=== PATIENT | female | born 1965 | race Caucasian/White ===

== ENCOUNTER → 2019-10-30 08:57 | Outpatient (BNVA) | payer BC, SELFPAY | PROVIDERS: Family Provider Family Medicine; Visit Provider Nurse Practitioner Women's Health | DX: N90.89 Other specified noninflammatory disorders of vulva and perineum (principal) | CPT/HCPCS: 88305 ==

== ENCOUNTER 2020-03-22 07:41 | Outpatient (CLI) | payer BC, SELFPAY ==
--- NOTE | 2020-03-22 08:01 | MM_ITS ---
WS: [id number] BILATERAL DIGITAL SCREENING MAMMOGRAPHY WITH CAD CLINICAL INFORMATION: SCREEN HISTORY: Screening mammogram. No current complaints. COMPARISON: TECHNIQUE: Bilateral CC and MLO views. FINDINGS: Scattered fibroglandular densities bilaterally. No suspicious focal mass, asymmetry, calcifications, or architectural distortion. No evidence of malignancy. MM/[id number] IMPRESSION: BI-RADS: 1-Negative FOLLOW UP: 1 Year Follow-up Recommend return to annual screening mammography.
== END 2020-03-22 07:42 | disposition home or self-care (01) ==
LOC: RADSHAW 07:47
PROVIDERS: PCP Family Medicine; Visit Provider Family Medicine
DX: Z12.31 Encounter for screening mammogram for malignant neoplasm of breast (principal)
CPT/HCPCS: 77067

== ENCOUNTER 2021-01-06 07:00 | Observation (INO) | payer OTHER, SELFPAY ==
[2021-01-06] VITALS (13 sets, daily range): BP systolic 119–177; BP diastolic 76–105; PULSE 68–100; RESP 15–20; TEMP 36.2–37.1; O2SAT 93–98; BMI 45.1
--- NOTE | 2021-01-06 07:43 | CT_ITS ---
WS: [id number] CT ABDOMEN AND PELVIS WITH CONTRAST HISTORY: umbilical hernia, abd pain TECHNIQUE: Imaging performed of the abdomen and pelvis with IV contrast. Single phase imaging of the abdomen. Coronal and sagittal reformats are submitted. All CT scans at [facility] use at least one of these dose optimization techniques: automated exposure control; mA and/or kV adjustment per patient size (includes targeted exams where dose is matched to clinical indication); or iterativ e reconstruction. IV CONTRAST: Omnipaque 300; 95 mL IV. Oral contrast: No DLP: 2355.16 mGy.cm COMPARISON: None available. Lower thorax: Very slight dependent changes at the lung bases. Heart is normal size. Small hiatal her livier. Liver/biliary system: Mild diffuse hepatic steatosis. No bile duct dilatation or mass. Gallbladder: Normal. No gallstones or wall thickening. No pericholecystic fluid. Pancreas: Normal size pancreas and pancreatic duct. No adjacent inflammation. Spleen: Normal size spleen. No mass or infarct. Adrenal glands: Normal. Right kidney: Normal. Left kidney: Normal. Aorta: Normal. Lymphadenopathy: None. Free fluid: None. GI tract: Normal appendix. There is mild diffuse fecal retention. Numerous diverticula in the descend ing and sigmoid colon. Mild chronic wall thickening of the sigmoid colon. No evidence for acute diver ticulitis. Abdominal wall: Acute area of fat necrosis and stranding and omental infarction at the umbilicus. Sof t tissue stranding of the omental fat which herniates through an umbilical hernia. The orifice of the hernia is 13 mm. The area of enhancement and acute omental necrosis measures 2.3 x 4.7 cm. Fat necro sis is both within the peritoneal cavity but also external to the peritoneal cavity from herniation. Pelvis: No free fluid or adenopathy within the pelvis. Bones: Unremarkable. CT/CT abdomen pelvis w con* [id number] IMPRESSION: 1. Acute omental ischemic changes at the umbilicus. No herniation and associat ed GI tract. 2. Normal appendix. 3. Diverticulosis without evidence for acute diverticulitis.
--- NOTE | 2021-01-06 07:44 | W.ED.ABDPA2 ---
Documented by User: MAU Arrington 01/06/21 09:14 HPI - Abdominal Pain General: Chief Complaint: Abdominal Pain Stated Complaint: Hernia Complications/abd pain Time Seen by Provider: 01/06/21 07:32 History of Present Illness: HPI narrative: 55-year-old female comes in today with umbilical abdominal discomfort since last night. Patient reported difficulty with pain and difficulty sleeping through the night. Patient noticed a lump in her umbilical area about 1 month ago that resolved on its own. Last night patient then felt the lump again and with some discomfort. There is no sign of redness or inflammation to the abdomen. Patient denies any blood in vomit or stool. Patient denies any fever. Patient has had had a uterine ablation. MD elicited complaint: abdominal pain Pertinent past history: none Onset (ago): hour(s) Pain Consistency: other Location: Other (umbilical) Severity: moderate Quality: aching Radiation: none Migration to: no migration Review of Systems General: Reports: 10 or more systems reviewed and unremarkable except in HPI and below GI: Reports: abdominal pain PFSH ED PFSH: Medical History (Updated 01/06/21 @ 11:13 by Radames Brock DO) No pertinent past medical history Vulvar lesion Surgical History H/O arthroscopic knee surgery both knees have been repaired H/O dilation and curettage (~1987) SAB History of endometrial ablation (~2009) treatment of AUB Family History Grandmother Cancer Maternal grandmother--colon cancer and breast cancer Diabetes Paternal grandmother Mother Cancer, Onset Age: 70 uterine cancer Hypertension Father Diabetes Hypertension Heart disease Grandfather Diabetes Paternal grandfather Denies family history of Hyperlipidemia Family history of thyroid problem Stroke Social History Smoking and tobacco status: never smoked Alcohol intake: never Physical Exam Const: COMMON NORMALS: no acute distress and patient oriented x3 GENERAL APPEARANCE: cooperative HENMT: COMMON NORMALS: normocephalic and Normal external nose present HEAD & SCALP: normal to inspection and normocephalic NOSE: Normal external nose present MOUTH: Normal oral and palatal mucosa present THROAT: posterior oropharynx normal Neck/C-Spine: COMMON NORMALS: full ROM Chest: COMMONS NORMALS: normal inspection of the chest Resp: COMMON NORMALS: normal respiratory effort EFFORT & INSPECTION: Yes able to speak in complete sentences Cardio: COMMON NORMALS: regular rate and regular rhythm RATE: regular rate RHYTHM: regular rhythm GI: COMMON NORMALS: Soft to palpation INSPECTION: Yes normal to inspection AUSCULTATION: Yes normoactive bowel sounds PALPATION: Yes Soft to palpation, Yes Tenderness to palpation present (GI) (Umbilical) and Yes Other GI palpation findings present (Supra umbilical palpable mass that is tender but reduces.) PERCUSSION: normal to percussion : COMMON NORMALS: Yes no CVA tenderness BLADDER/KIDNEY EXAM: Yes no CVA tenderness Back/Pelvis: COMMON NORMALS: no CVA tenderness and thoracic and lumbar spine normal to inspection Extremity: COMMON NORMALS: normal to inspection Neuro: COMMON NORMALS: patient oriented x3 and moves all extremities Psych: COMMON NORMALS: mental status grossly normal and cooperative Skin: COMMON NORMALS: no rashes or lesions noted GENERAL SKIN EXAM: no rashes or lesions noted Course ED course: 905, discussed with Dr. Brock abnormality on the CT scan with the abdomen pelvis, shows entrapped, necrotic omentum and a umbilical hernia. Vital Signs: Vital signs: Vital Signs Temperature 98.7 F 01/06/21 10:02 Pulse Rate 76 01/06/21 10:42 Respiratory Rate 20 H 01/06/21 10:42 Blood Pressure 177/93 01/06/21 10:42 Pulse Oximetry 95 01/06/21 10:42 MDM - Abdominal Pain MDM Narrative: Medical decision making narrative: Patient came in today for concerns of umbilical tenderness and swelling. Patient reported significant pain last night to the point that she was unable to sleep. Patient appears well. Patient appears no acute distress. On exam there is a palpable mass to the umbilical area just superior to it. It is reducible but there is some induration or thickening of the tissue. No significant redness is noted to the surrounding area. Vital signs are normal. Differential diagnosis includes but not limited to incarcerated hernia, entrapped omentum, bowel obstruction. Laboratory values were unremarkable. CT scan abdomen pelvis did note entrapped omentum with necrosis. I reviewed this with Dr. Brock who felt the patient needed to be further evaluated by surgery. Care was then turned over to Dr. Brock for completion of treatment and evaluation. Lab Data: Labs: Lab Results 01/06/21 01/06/21 Range/Units 07:51 07:51 WBC 9.8 (4.0-10.0) 10^3/ uL RBC 4.86 (4.1-5.3) 10^6/u L Hgb 15.1 (11.5-15.3) g/dL Hct 46.4 (37.0-47.0) % MCV 95.5 (81-99) fL MCH 31.1 (28.0-34.0) pg MCHC 32.5 (30.0-36.0) g/dL RDW 13.6 (12.1-15.1) % Plt Count 284 (130-400) 10^3/c mm MPV 9.4 (7.4-10.4) fL Neut % (Auto) 61.2 % Lymph % (Auto) 26.5 % [place] % (Auto) 9.0 % Eos % (Auto) 1.6 % Baso % (Auto) 0.8 % Neut # (Auto) 5.97 (1.8-7.7) 10^3/u L Lymph # (Auto) 2.6 (0.8-4.8) 10^3/u L [place] # (Auto) 0.9 (0.2-0.9) 10^3/u L Eos # (Auto) 0.2 (0.0-0.8) 10^3/u L Baso # (Auto) 0.1 (0.0-0.1) 10^3/u L Nucleated RBC % (a uto) 0 % Nucleated RBCs # 0.0 /100WBC Sodium 136 (136-145) mmol/L Potassium 4.2 (3.5-5.1) mmol/L Chloride 105 (98-107) mmol/L Carbon Dioxide 25 (22-29) mmol/L Anion Gap 10.2 (5-19) BUN 12 (6-20) mg/dL Creatinine 0.8 (0.5-0.9) mg/dL GFR Calculation 74.7 L (90-130) mL/min Glucose 161 H (65-115) mg/dL Calculated Osmolal ity 285 (285-295) mOsm/k g Calcium 8.9 (8.5-10.5) mg/dL Total Bilirubin 0.5 (0.15-1.2) mg/dL AST 14 (0-32) U/L ALT 18 (0-33) U/L Alkaline Phosphata se 83 (35-105) IU/L Total Protein 6.7 (6.6-8.7) g/dL Albumin 3.6 (3.5-5.2) g/dL Globulin 3.1 (1.3-4.6) g/dL Discharge Plan Discharge Patient Disposition: Placed in Observation Clinical Impression: Incarcerated umbilical hernia Condition: Stable Prescriptions: No Action pantoprazole 40 mg tablet,delayed release (DR/EC) 40 mg PO DAILY RF: 0 metformin 750 mg tablet extended release 24 hr 750 mg PO DAILY RF: 0 Referrals: Rocio Diaz MD [Primary Care Provider] - Sign Out Sign Out Data: Patient Sign Out occurred on 01/06/21 at 11:03. Patient's care was discussed, and care was transferred from to Radames Brock DO. Coding Level of Care Code ED Wheel Cutter for Chg Fwd Exam Comprehensive Documented by User: Radames Brock DO 01/06/21 11:13 HPI - Abdominal Pain General: Chief Complaint: Abdominal Pain Stated Complaint: Hernia Complications/abd pain Time Seen by Provider: 01/06/21 07:32 History of Present Illness: HPI narrative: 55-year-old female initially seen by PA. Patient has incarcerate umbilical hernia still having pain. She had the symptoms about a month ago resolved now has recurred. MD elicited complaint: abdominal pain Onset (ago): hour(s) Pain Consistency: constant Location: None Severity: moderate Quality: cramping Radiation: none Migration to: periumbilical Exacerbating factors: movement and other (Palpation) Associated Symptoms: Reports anorexia and GI cramping; Denies belching, bloating, change in bowel habits, change in stool character, chills, coffee ground emesis, constipation, diarrhea, dyspepsia, dysuria, excessive flatus, fever(s), heartburn, hematochezia, hematuria, hematemesis, fecal incontinence, loose stools, melena, nausea, poor appetite, syncope and vomiting Review of Systems Const: Denies: fever(s) or chills ENMT: Denies: throat pain, ear or mastoid pain, nasal discharge or nasal congestion Card: Denies: syncope Resp: Denies: dyspnea, productive cough or non-productive cough GI: Reports: GI cramping; Denies: nausea, vomiting, hematemesis, coffee ground emesis, heartburn, diarrhea, constipation, bloating, belching, excessive flatus, fecal incontinence, change in bowel habits, change in stool character, hematochezia or melena : Denies: dysuria or hematuria Skin/Breast: Denies: rash or pruritus PFSH ED PFSH: Medical History (Updated 01/06/21 @ 11:13 by Radames Brock DO) No pertinent past medical history Vulvar lesion Surgical History H/O arthroscopic knee surgery both knees have been repaired H/O dilation and curettage (~1987) SAB History of endometrial ablation (~2009) treatment of AUB Family History Grandmother Cancer Maternal grandmother--colon cancer and breast cancer Diabetes Paternal grandmother Mother Cancer, Onset Age: 70 uterine cancer Hypertension Father Diabetes Hypertension Heart disease Grandfather Diabetes Paternal grandfather Denies family history of Hyperlipidemia Family history of thyroid problem Stroke Social History Smoking and tobacco status: never smoked Alcohol intake: never Physical Exam Const: COMMON NORMALS: no acute distress GENERAL APPEARANCE: cooperative and comfortable ORIENTATION/CONSCIOUSNESS: Yes awake, Yes oriented to person, Yes oriented to place and Yes oriented to time HENMT: COMMON NORMALS: normocephalic, atraumatic and hearing grossly normal bilaterally HEAD & SCALP: normocephalic and atraumatic Neck/C-Spine: COMMON NORMALS: no JVD Resp: COMMON NORMALS: normal respiratory effort, No retractions, No use of accessory muscles and clear to auscultation bilaterally AUSCULTATION: clear to auscultation bilaterally Cardio: COMMON NORMALS: no JVD, regular rate, regular rhythm and No murmurs present (Cardio) RATE: regular rate RHYTHM: regular rhythm GI: COMMON NORMALS: No hepatosplenomegaly present AUSCULTATION: Yes normoactive bowel sounds PALPATION: Yes Tenderness to palpation present (GI) (Periumbilical tenderness consistent with mass palpated), No Guarding due to palpation present (GI) and Yes No hepatosplenomegaly present Extremity: COMMON NORMALS: normal to inspection, capillary refill normal, no clubbing, cyanosis or edema, no calf tenderness and no pedal edema Neuro: SENSORIUM/ORIENTATION: Yes oriented to person, Yes oriented to place and Yes oriented to time Skin: COMMON NORMALS: no rashes or lesions noted GENERAL SKIN EXAM: no rashes or lesions noted Course Vital Signs: Vital signs: Vital Signs Temperature 98.7 F 01/06/21 10:02 Pulse Rate 76 01/06/21 10:42 Respiratory Rate 20 H 01/06/21 10:42 Blood Pressure 177/93 01/06/21 10:42 Pulse Oximetry 95 01/06/21 10:42 MDM - Abdominal Pain MDM Narrative: Medical decision making narrative: Umbilical hernia incarcerated with omental fat with necrosis. Discussed with Dr. Castillo he will see the patient take her to surgery orders written Lab Data: Labs: Lab Results 01/06/21 01/06/21 Range/Units 07:51 07:51 WBC 9.8 (4.0-10.0) 10^3/ uL RBC 4.86 (4.1-5.3) 10^6/u L Hgb 15.1 (11.5-15.3) g/dL Hct 46.4 (37.0-47.0) % MCV 95.5 (81-99) fL MCH 31.1 (28.0-34.0) pg MCHC 32.5 (30.0-36.0) g/dL RDW 13.6 (12.1-15.1) % Plt Count 284 (130-400) 10^3/c mm MPV 9.4 (7.4-10.4) fL Neut % (Auto) 61.2 % Lymph % (Auto) 26.5 % [place] % (Auto) 9.0 % Eos % (Auto) 1.6 % Baso % (Auto) 0.8 % Neut # (Auto) 5.97 (1.8-7.7) 10^3/u L Lymph # (Auto) 2.6 (0.8-4.8) 10^3/u L [place] # (Auto) 0.9 (0.2-0.9) 10^3/u L Eos # (Auto) 0.2 (0.0-0.8) 10^3/u L Baso # (Auto) 0.1 (0.0-0.1) 10^3/u L Nucleated RBC % (a uto) 0 % Nucleated RBCs # 0.0 /100WBC Sodium 136 (136-145) mmol/L Potassium 4.2 (3.5-5.1) mmol/L Chloride 105 (98-107) mmol/L Carbon Dioxide 25 (22-29) mmol/L Anion Gap 10.2 (5-19) BUN 12 (6-20) mg/dL Creatinine 0.8 (0.5-0.9) mg/dL GFR Calculation 74.7 L (90-130) mL/min Glucose 161 H (65-115) mg/dL Calculated Osmolal ity 285 (285-295) mOsm/k g Calcium 8.9 (8.5-10.5) mg/dL Total Bilirubin 0.5 (0.15-1.2) mg/dL AST 14 (0-32) U/L ALT 18 (0-33) U/L Alkaline Phosphata se 83 (35-105) IU/L Total Protein 6.7 (6.6-8.7) g/dL Albumin 3.6 (3.5-5.2) g/dL Globulin 3.1 (1.3-4.6) g/dL Discharge Plan Discharge Patient Disposition: Placed in Observation Clinical Impression: Incarcerated umbilical hernia Condition: Stable Prescriptions: No Action pantoprazole 40 mg tablet,delayed release (DR/EC) 40 mg PO DAILY RF: 0 metformin 750 mg tablet extended release 24 hr 750 mg PO DAILY RF: 0 Referrals: Rocio Diaz MD [Primary Care Provider] - Sign Out Sign Out Data: Patient Sign Out occurred on 01/06/21 at 11:03. Patient's care was discussed, and care was transferred from to Radames Brock DO. Coding Level of Care Code ED Wheel Cutter for Ena Fwd Exam Comprehensive
[2021-01-06 07:57] LABS: Basophils # 0.1 10^3/uL (0.0-0.1); Basophils % 0.8 %; Eosinophils # 0.2 10^3/uL (0.0-0.8); Eosinophils % 1.6 %; Hematocrit 46.4 % (37.0-47.0); Hemoglobin 15.1 g/dL (11.5-15.3); Lymphocytes # 2.6 10^3/uL (0.8-4.8); Lymphocytes % 26.5 %; Mean Corpuscular HGB Conc 32.5 g/dL (30.0-36.0); Mean Corpuscular Hemoglobin 31.1 pg (28.0-34.0); Mean Corpuscular Volume 95.5 fL (81-99); Mean Platelet Volume 9.4 fL (7.4-10.4); Monocytes # 0.9 10^3/uL (0.2-0.9); Neutrophils # 5.97 10^3/uL (1.8-7.7); Neutrophils % 61.2 %; Nucleated Red Blood Cells % 0 %; Platelet Count 284 10^3/cmm (130-400); Red Blood Count 4.86 10^6/uL (4.1-5.3); Red Cell Distribution Width 13.6 % (12.1-15.1); White Blood Count 9.8 10^3/uL (4.0-10.0)
[2021-01-06 08:29] LABS: Alanine Aminotransferase 18 U/L (0-33); Albumin Level 3.6 g/dL (3.5-5.2); Alkaline Phosphatase 83 IU/L (35-105); Anion Gap 10.2 (5-19); Aspartate Amino Transferase 14 U/L (0-32); Blood Urea Nitrogen 12 mg/dL (6-20); Calcium 8.9 mg/dL (8.5-10.5); Carbon Dioxide 25 mmol/L (22-29); Chloride 105 mmol/L (98-107); Globulin 3.1 g/dL (1.3-4.6); Glomerular Filtration Rate 74.7 mL/min (90-130); Glucose 161 mg/dL (65-115); Osmolality Calculated 285 mOsm/kg (285-295); Potassium 4.2 mmol/L (3.5-5.1); Sodium 136 mmol/L (136-145); Total Bilirubin 0.5 mg/dL (0.15-1.2); Total Protein 6.7 g/dL (6.6-8.7)
[2021-01-06] MEDS: iohexol 300 mg/mL 100 mL Btl IV (08:29)
[2021-01-06] MEDS: morphine 4 mg/mL SDV 1 mL 2 MG IVP (13:12)
[2021-01-06] MEDS: ondansetron 2 mg/ML SDV 2 mL 4 MG IVP ×2 (13:12→16:16)
--- NOTE | 2021-01-06 14:02 | PC.NURSE ---
When senior medical writer received report from Rocio in ER she said she was giving morphine and zofran to patient prior to bringing her to floor. on OCT there was order to give Morphine and Zofran. Jalousie Installer called ER and spoke with Rocio and she said she did give the Zofran and Morphine.
--- NOTE | 2021-01-06 14:27 | PC.NURSE ---
patient taken to OR via gurney
--- NOTE | 2021-01-06 14:49 | P.ANESASSM_ITS ---
Pre-Anesthetic Assessment Pre-Anesthetic Assessment: Height/Weight: Height 1.68 m Weight 127.006 kg Temp Pulse Resp BP Pulse Ox 98.7 F 81 18 153/76 95 01/06/21 14:38 01/06/21 14:38 01/06/21 14:38 01/06/21 14:38 01/06/21 14:38 Preop Diagnosis: Incarcerated umbilical hernia Proposed Procedure: Operation Date: 01/06/21 15:50 Proposed Procedures p Umbilical Hernia Repair(Not Applicable) - Patrice Castillo MD Familial anesthetic complications: None Was Beta Yane taken within 24 hours: N/A Was Clonidine taken within 24 hours: N/A Last intake: Intake Last Liquid Date 01/05/21 Last Liquid Time 19:00 Last Solid Date 01/05/21 Last Solid Time 19:00 Social: Social History: No alcohol and No tobacco Exam: Pre-Anes Outpt Exam: alert, oriented x 3, clear to auscultation bilaterally and regular rate & rhythm Airway: Cervical ROM: WNL MP: 4 Dentition: Full GI: GI: GERD Metabolic: Metabolic: DM (newly diagnosed ) and Morbid obesity Anesthetic Plan: ASA status: 2 Anesthesia: General Risk of > 500 ml blood loss (7ml/kg in children): No PFSH Anesthesia PFSH: Medical History (Updated 01/06/21 @ 14:48 by Patrice Castillo MD) Vulvar lesion Surgical History (Updated 01/06/21 @ 14:48 by Patrice Castillo MD) H/O arthroscopic knee surgery both knees have been repaired H/O dilation and curettage (~1987) SAB H/O esophagogastroduodenoscopy History of endometrial ablation (~2009) treatment of AUB Status post colonoscopy Family History Grandmother Cancer Maternal grandmother--colon cancer and breast cancer Diabetes Paternal grandmother Mother Cancer, Onset Age: 70 uterine cancer Hypertension Father Diabetes Hypertension Heart disease Grandfather Diabetes Paternal grandfather Denies family history of Hyperlipidemia Family history of thyroid problem Stroke Social History Smoking and tobacco status: never smoked Alcohol intake: never Data Anesthesia CBC & Chem 7: 01/06/21 07:51 01/06/21 07:51 Other Labs: Laboratory Results - last 48 hr 01/06/21 01/06/21 07:51 07:51 WBC 9.8 RBC 4.86 Hgb 15.1 Hct 46.4 MCV 95.5 MCH 31.1 MCHC 32.5 RDW 13.6 Plt Count 284 MPV 9.4 Neut % (Auto) 61.2 Lymph % (Auto) 26.5 [place] % (Auto) 9.0 Eos % (Auto) 1.6 Baso % (Auto) 0.8 Neut # (Auto) 5.97 Lymph # (Auto) 2.6 [place] # (Auto) 0.9 Eos # (Auto) 0.2 Baso # (Auto) 0.1 Nucleated RBC % (auto) 0 Nucleated RBCs # 0.0 Sodium 136 Potassium 4.2 Chloride 105 Carbon Dioxide 25 Anion Gap 10.2 BUN 12 Creatinine 0.8 GFR Calculation 74.7 L Glucose 161 H Calculated Osmolality 285 Calcium 8.9 Total Bilirubin 0.5 AST 14 ALT 18 Alkaline Phosphatase 83 Total Protein 6.7 Albumin 3.6 Globulin 3.1 Cardiac Studies: No Data to Display
--- NOTE | 2021-01-06 14:50 | PM.HP ---
Providers/Chief Complaint Admitting Physician: Patrice Castillo MD Primary Care Provider: Rocio Diaz MD Chief Complaint: Hernia Complications History of Present Illness Yamilka Cruz is a 55 year old female who had mild periumbilical pain about a month ago but it resolved spontaneously and she was diagnosed with umbilical hernia at that point. 36 hours ago she started having severe umbilical pain which is persisted and therefore she presented to the ER for further evaluation. Patient states the pain does not radiate, worse with physical activity, no relieving factors. She denies any nausea, vomiting, fevers or chills. No prior hernia repairs in the past. No prior laparoscopic or abdominal surgeries. Review of Systems General: Reports: 10 or more systems reviewed and unremarkable except in HPI and below Medications/Allergies Home Medications Medication Instructions Recorded Confirmed Last Taken Type metformin 750 mg PO DAILY 01/06/21 01/06/21 Unknown History pantoprazole 40 mg PO DAILY 01/06/21 01/06/21 Unknown History Allergies Allergy/AdvReac Type Severity Reaction Status Date / Time Milk Containing Products Allergy ADR-Vomitin Verified 01/06/21 07:34 g PFSH Acute PFSH: Medical History (Updated 01/06/21 @ 14:48 by Patrice Castillo MD) Vulvar lesion Surgical History (Updated 01/06/21 @ 14:48 by Patrice Castillo MD) H/O arthroscopic knee surgery both knees have been repaired H/O dilation and curettage (~1987) SAB H/O esophagogastroduodenoscopy History of endometrial ablation (~2009) treatment of AUB Status post colonoscopy Family History Grandmother Cancer Maternal grandmother--colon cancer and breast cancer Diabetes Paternal grandmother Mother Cancer, Onset Age: 70 uterine cancer Hypertension Father Diabetes Hypertension Heart disease Grandfather Diabetes Paternal grandfather Denies family history of Hyperlipidemia Family history of thyroid problem Stroke Social History Smoking and tobacco status: never smoked Alcohol intake: never Vitals/I&O/Wt Last Vital Signs Temp 98.7 F 01/06/21 14:38 Pulse 81 01/06/21 14:38 Resp 18 01/06/21 14:38 BP 153/76 01/06/21 14:38 Pulse Ox 95 01/06/21 14:38 01/05/21 01/06/21 01/06/21 22:59 06:59 14:59 Intake Total 50 / 50 Balance 50 / 50 Weight last 48 hrs Weight 280 lb Physical Exam Narrative: EXAM NARRATIVE: HEENT: Normocephalic Eye: Sclera /conjunctiva normal Respiratory and chest: Bilateral clear breath sounds on auscultation Cardiovascular: Normal S1 and S2 heart sounds Abdomen: Soft to palpation, tender about the umbilicus, no overlying skin changes, no peritonitis Neurological: Oriented to place person and time Skin: Intact, no lesions appreciated on gross exam Data : 01/06/21 07:51 01/06/21 07:51 A&P Assessment and plan (1) Incarcerated umbilical hernia: 55-year-old female with incarcerated umbilical hernia which is symptomatic WBC 9.8 CT abdomen pelvis showed incarcerated umbilical hernia with acute omental changes Discussed the findings with the patient Plan for open repair of umbilical hernia with possible mesh Procedure, risks, benefits and alternatives have been discussed with the patient who wishes to proceed with surgery. Status: Acute Attestations Medical Necessity Statement*: Umbilical hernia, incarcerated requiring surgery Coding Level of Care Code Acute Ping Pong Table Assembler for [facility] Diagnoses Incarcerated umbilical hernia K42.0
--- NOTE | 2021-01-06 15:57 | ANE.PACU2 ---
Inpatient post-anesthesia follow up: Airway intact: Yes Vital signs: Temperature 97.2 F Pulse Rate [Left R adial] 84 Pulse Rate 100 Respiratory Rate 20 Blood Pressure [Le ft Arm] 141/90 Blood Pressure 119/90 Pulse Oximetry 98 Oxygen Delivery Me thod Room Air Oxygen Flow Rate Fraction of Inspir ed Oxygen Hydration adequate: Yes Nausea and vomiting: No Pain level: 2 Mental status: Baseline
[2021-01-06 16:24] LABS: Anion Gap 15.8 (5-19); Blood Urea Nitrogen 10 mg/dL (6-20); Calcium 8.6 mg/dL (8.5-10.5); Carbon Dioxide 24 mmol/L (22-29); Chloride 104 mmol/L (98-107); Glomerular Filtration Rate 74.7 mL/min (90-130); Glucose 110 mg/dL (65-115); Osmolality Calculated 290 mOsm/kg (285-295); Potassium 3.8 mmol/L (3.5-5.1); Sodium 140 mmol/L (136-145)
--- NOTE | 2021-01-06 16:26 | PM.OP ---
Operative Report Date of procedure: January 06, 2021 Pre-op Diagnosis: Incarcerated umbilical hernia Post-op Diagnosis: Incarcerated umbilical hernia containing omentum with necrosis, with adjacent smaller ventral hernia Procedure Done: Open primary repair of umbilical hernia Specimens removed/disposition: Hernia sac with contents Surgeon: Patrice Castillo Anesthesia: General Condition: stable Disposition: PACU Procedure: The patient was taken to the operating room and intubated under general anesthesia after IV antibiotic had been administered. The abdomen was prepped and draped in a sterile manner. A 2 cm supraumbilical longitudinal incision was made using a 15 blade, a hernial sac dissected out using electrocautery. The hernial sac was opened and infarcted omentum within the hernia sac was excised. The remaining omentum was reduced into the peritoneal cavity. Palpation of the abdominal wall revealed another hernia inferior to the incarcerated hernia. The bridge of tissue between the 2 hernias was excised to create 3 cm defect. Interrupted sutures using 0 Vicryl was used to close the hernial defect without any tension. The subcutaneous tissue was approximated using 3-0 Vicryl and skin was closed using running subcuticular 4-0 Monocryl sutures. Dermabond was applied and 0.5% Marcaine was infiltrated around the incision. A 2 x 2 gauze was then placed within the umbilicus and sterile dressings were applied. The patient was stable throughout the procedure and transferred to recovery room in stable condition.
--- NOTE | 2021-01-06 16:44 | P.DS_ITS ---
Discharge Providers Date of Admission: 01/06/21 13:45 Date of Discharge: January 06, 2021 Attending Provider at Admission: Patrice Castillo MD Attending Provider at Discharge: Patrice Castillo MD Primary Care Provider: Rocio Diaz MD Diagnoses at Discharge Discharge Diagnosis (1) Incarcerated umbilical hernia: Status: Resolved Reason for Visit Reason for Visit: Hernia Complications Hospital Course Hospital Course Yamilka Cruz is a 55 year old female who had mild periumbilical pain about a month ago but it resolved spontaneously and she was diagnosed with umbilical hernia at that point. 36 hours ago she started having severe umbilical pain which is persisted and therefore she presented to the ER for further evaluation. Patient states the pain does not radiate, worse with physical activity, no relieving factors. She denies any nausea, vomiting, fevers or chills. No prior hernia repairs in the past. No prior laparoscopic or abdominal surgeries. Patient underwent open repair of incarcerated umbilical hernia. At discharge she was hemodynamically stable, pain controlled with oral pain medications and ambulating with assistance Discharge Data Data Completed and Pending: Completed Studies During Hospitalization Category Date Time Status CT abdomen pelvis w con* [id number] Urge nt Cat Scan 01/06/21 07:43 Completed Pending at discharge Category Date Time Status Complete Blood Co unt w/Auto AM LABS Lab 01/07/21 04:00 Ordered Pathology: Surgic al [PTH] Routine Pth 01/06/21 15:30 Ordered Labs from last 24 hours 01/06/21 01/06/21 01/06/21 14:33 07:51 07:51 WBC 9.8 RBC 4.86 Hgb 15.1 Hct 46.4 MCV 95.5 MCH 31.1 MCHC 32.5 RDW 13.6 Plt Count 284 MPV 9.4 Neut % (Auto) 61.2 Lymph % (Auto) 26.5 [place] % (Auto) 9.0 Eos % (Auto) 1.6 Baso % (Auto) 0.8 Neut # (Auto) 5.97 Lymph # (Auto) 2.6 [place] # (Auto) 0.9 Eos # (Auto) 0.2 Baso # (Auto) 0.1 Nucleated RBC % (a uto) 0 Nucleated RBCs # 0.0 Sodium 140 136 Potassium 3.8 4.2 Chloride 104 105 Carbon Dioxide 24 25 Anion Gap 15.8 10.2 BUN 10 12 Creatinine 0.8 0.8 GFR Calculation 74.7 L 74.7 L Glucose 110 161 H Calculated Osmolal ity 290 285 Calcium 8.6 8.9 Total Bilirubin 0.5 AST 14 ALT 18 Alkaline Phosphata se 83 Total Protein 6.7 Albumin 3.6 Globulin 3.1 Vitals: Last Vital Signs Temp 97.7 F 01/06/21 15:58 Pulse 88 01/06/21 15:58 Resp 15 01/06/21 15:58 BP 135/87 01/06/21 15:58 Pulse Ox 97 01/06/21 15:58 Discharge Plan Discharge Patient Disposition: Home Condition: Stable Prescriptions: New Zofran 4 mg tablet 4 mg PO Q6H PRN (Reason: nausea and vomiting) Qty: 20 RF: 0 Colace 100 mg capsule 100 mg PO BID Qty: 30 RF: 0 hydrocodone-acetaminophen 5-325 mg tablet 1 tab PO Q6H PRN (Reason: pain) Qty: 20 RF: 0 Continued pantoprazole 40 mg tablet,delayed release (DR/EC) 40 mg PO DAILY RF: 0 metformin 750 mg tablet extended release 24 hr 750 mg PO DAILY RF: 0 Discharge Orders: Discharge Order (Routine); Ordered 01/06/21 Ordered By: Patrice Castillo Referrals: Rocio Diaz MD [Primary Care Provider] - 01/14/21 11:30 am Patrice Castillo MD [Physician] - 01/21/21 1:15 pm Patient Instructions: Hydrocodone/Acetaminophen (By mouth), Laxative, Stool Softeners (By mouth), Ondansetron (By mouth), Surgical Site Infections (GEN), Opioid Safety Activity Restrictions/Additional Instructions: Diet Advance to normal diet as tolerated, increase fluid intake as much as possible. Activity Avoid strenuous activity for 2 weeks but continue with daily activities including walking as tolerated. Do not lift more than 10 pounds for 2 weeks Return to work/school You can return to work/ school whenever you feel ready as long as you don?t have to lift more than 10 pounds at work. If you have paperwork that needs to be completed for time off from work, please contact my office Driving You can resume driving once you stop using narcotic pain medications, and transition to non-opioid pain medications like Tylenol, Motrin, Aleve, etc. Medications Pain Take opioid pain medications as prescribed and transition to non-opioid pain medications like Tylenol, Motrin, Aleve etc. over the next few days. The goal of the pain medications is to make the pain bearable and not to be pain free since you recently had surgery. Resume all home medications after surgery as per the medication reconciliation list Nausea Nausea is common after surgery, take nausea medications as needed and stay on a liquid bland diet until nausea resolves. Constipation The combination of surgery, anesthesia and pain medications can result in constipation. Take stool softeners as prescribed. If you do not have a bowel movement in 3 days, please take an fvvy-vyz-bknpjpy laxative like MiraLAX to address the constipation. Shower It is ok to shower but avoid getting the wound wet for 48 hours after surgery. Do not soak in bathtub, swimming pool or hot tub for 2 weeks. Wound care The glue applied to the incision will peel slowly over the next two weeks. The stitches used are dissolvable and will not need to be removed. Do not apply antibiotics or other medications on the incision Problems with the wound You can develop some redness around the incision from bruising after surgery. If there is increasing pain, redness, tenderness around the incision with or without drainage, please contact my office to rule out an infection. Sometimes the skin at the incisions can separate, resulting in reopening of the wound. Cover the wound with antibiotic cream and sterile dressings and contact my office. Contact physician Call the office at [phone] during office hours or go the Emergency Room after hours for - ?Fever to 100.4 or greater ?Shaking chills ?Pain that increases over time ?Redness, warmth, or pus draining from incision sites ?Persistent nausea or inability to take in liquids Discharge Attestations Time Spent in Discharge Care*: less than 30 min Quality Metrics Clinical Quality Measures During this hospital stay, did patient experience: None Coding Level of Care Code Acute [facility] note Diagnoses Incarcerated umbilical hernia K42.0
[2021-01-06] MEDS: HYDROcodone-acetaminophen 5-325 mg Tablet 1 TAB PO (18:14)
--- NOTE | 2021-01-06 18:41 | PC.NURSE ---
medical underwriter called Dr Castillo and per luis miguel Jha to send patient home. discharge instructions given to patient and spouse. both verbalized understanding. patient getting dressed.
--- NOTE | 2021-01-07 12:33 | PC.NURSE ---
Missed does written for 10:47 Zofran 4mg,and Morphine 2 mg. Called pharmacy, informed to reorder the medication. Reordered the med. When med came available, pulled the meds. Wasted the Morphine with another nurse. Went to give med but the pt was taken to 2nd floor. Went to the floor and gave the medication. Floor nurse called me back in the ER and I informed her the 2 meds were given per written order.
--- NOTE | 2021-01-07 12:43 | PC.NURSE ---
Edited MAR for Morphine and Zofran that were given in ER per Jesus in Pharmacy. As previously documented not administered with reason, given in ER.
== END 2021-01-06 19:16 | disposition home or self-care (01) ==
LOC: ER 11:13 → MEDSURG 13:31
PROVIDERS: Nurse Practitioner Family; Admitting Provider Surgery; Emergency Provider Family Medicine; PCP Family Medicine; Visit Provider Surgery
PROC: (CPT 49587; principal; 2021-01-06 15:30)
DX: K42.0 Umbilical hernia with obstruction, without gangrene (principal); E11.9 Type 2 diabetes mellitus without complications; K21.9 Gastro-esophageal reflux disease without esophagitis; E66.01 Morbid (severe) obesity due to excess calories; Z68.42 Body mass index [BMI] 45.0-49.9, adult
CPT/HCPCS: 49587; 36415; 74177; 80048; 80053; 85025; 88302; 96361; 96365; 96366; 96367; 96375; 99285; G0378; J0690; J1100; J2270; J2405; J2704; J3010; J3490; Q9967

== ENCOUNTER 2021-07-28 06:00 | Outpatient (RCR) | payer OTHER, SELFPAY | END 2021-07-29 23:59 | disposition home or self-care (01) | LOC: SPT 06:00 | PROVIDERS: PCP Family Medicine; Visit Provider Orthopaedic Surgery Sports Medicine | DX: M17.0 Bilateral primary osteoarthritis of knee (principal) | CPT/HCPCS: 97162 ==

== ENCOUNTER 2021-07-30 06:00 | Outpatient (RCR) | payer OTHER, SELFPAY | END 2021-08-29 23:59 | disposition home or self-care (01) | LOC: SPT 06:00 | PROVIDERS: PCP Family Medicine; Visit Provider Orthopaedic Surgery Sports Medicine | DX: M17.0 Bilateral primary osteoarthritis of knee (principal) | CPT/HCPCS: 97110; 97112 ==

== ENCOUNTER 2021-09-12 06:00 | Outpatient (RCR) | payer OTHER, SELFPAY | END 2021-09-29 23:59 | disposition home or self-care (01) | LOC: SPT 06:00 | PROVIDERS: PCP Family Medicine; Visit Provider Orthopaedic Surgery Sports Medicine | DX: M17.0 Bilateral primary osteoarthritis of knee (principal) | CPT/HCPCS: 97110 ==

== ENCOUNTER 2022-02-05 05:32 | Day surgery (SDC) | payer OTHER, SELFPAY ==
[2022-02-04 11:09] VITALS: BMI 45.1
[2022-02-05] MEDS: sodium chloride 0.9% 1,000 ML 30 ML IV (06:15)
[2022-02-05 06:34] VITALS: BP 128/103; PULSE 82; RESP 18; TEMP 36.4; O2SAT 96
--- NOTE | 2022-02-05 06:50 | ANES.PREANE2 ---
Documented by User: Sherine Mckay CRNA 02/05/22 07:15 Pre-Anesthetic Assessment Height/Weight: Height 1.68 m Weight 127.006 kg Temp Pulse Resp BP Pulse Ox 97.5 F L 82 18 128/103 96 02/05/22 06:34 02/05/22 06:34 02/05/22 06:34 02/05/22 06:34 02/05/22 06:34 Preop Diagnosis: DYSPHAGIA Operation Date: 02/05/22 07:00 Proposed Procedures p EGD 69152,R13.10(Not Applicable) - Jono Wray DO Familial anesthetic complications: none Was Beta Yane taken within 24 hours: N/A Was Clonidine taken within 24 hours: N/A Last intake: Intake Last Liquid Date 02/04/22 Last Liquid Time 23:50 Last Solid Date 02/04/22 Last Solid Time 20:00 Social No alcohol and No tobacco Exam alert and oriented x 3 Airway Submandibular: within normal limits Cervical ROM: within normal limits Mallampati: Class II Dentition: full GI Gastroesophageal Reflux Disease and Hiatal Hernia Metabolic Morbid Obesity Anesthetic Plan ASA status: 3 Anesthesia: Anesthesia Evaluation and MAC Medications/Allergies Home Medications Medication Instructions Recorded Confirmed Last Taken Type pantoprazole 40 mg tablet,delayed 40 mg PO DAILY PRN 01/06/21 02/05/22 02/04/22 History release semaglutide 1 mg/dose (4 mg/3 mL) 1 mg SUBCUT .WKLY 02/04/22 02/05/22 01/31/22 History subcutaneous pen injector (Ozempic) Allergies Allergy/AdvReac Type Severity Reaction Status Date / Time Milk Containing Products Allergy ADR-Vomitin Verified 02/05/22 06:02 g PFSH Anesthesia Medical History GERD (gastroesophageal reflux disease) Vulvar lesion Surgical History H/O arthroscopic knee surgery both knees have been repaired H/O dilation and curettage (~1987) SAB H/O esophagogastroduodenoscopy History of endometrial ablation (~2009) treatment of AUB History of umbilical hernia repair (01/06/21) Status post colonoscopy Family History Grandmother Cancer Maternal grandmother--colon cancer and breast cancer Diabetes Paternal grandmother Mother Cancer, Onset Age: 70 uterine cancer Hypertension Father Diabetes Hypertension Heart disease Grandfather Diabetes Paternal grandfather Denies family history of Hyperlipidemia Family history of thyroid problem Stroke Social History Smoking and tobacco status: never smoked Alcohol intake: never Data Anesthesia Cardiac Studies: No Data to Display
--- NOTE | 2022-02-05 06:57 | W.PM.OPSUD ---
Surgery/Procedure H&P Update DATE OF PROCEDURE: February 05, 2022 DATE H&P PERFORMED: 02/04/22 CHANGES TO PREVIOUS DOCUMENTATION: NONE PREOP DIAGNOSIS: DYSPHAGIA PLANNED PROCEDURE: Operation Date: 02/05/22 07:00 Proposed Procedures p EGD [id number],R13.10(Not Applicable) - Jono Wray DO
[2022-02-05 07:12] VITALS: BP 123/91; PULSE 80; RESP 16; TEMP 36.2; O2SAT 93
--- NOTE | 2022-02-05 07:15 | ANE.PACU2 ---
Documented by User: Sherine Mckay CRNA 02/05/22 07:16 Inpatient post-anesthesia follow up: Airway intact: Yes Vital signs: Temperature 97.1 F Pulse Rate 80 Respiratory Rate 16 Blood Pressure 123/91 Pulse Oximetry 93 Oxygen Delivery Me thod Room Air Oxygen Flow Rate Fraction of Inspir ed Oxygen Hydration adequate: Yes Nausea and vomiting: No Pain level: 1 Mental status: Baseline
[2022-02-05 07:22] VITALS: BP 141/95; PULSE 80; RESP 18; TEMP 35; O2SAT 94
== END 2022-02-05 07:56 | disposition home or self-care (01) ==
PROVIDERS: PCP Family Medicine; Visit Provider Surgery
PROC: 0DJ08ZZ Inspection of Upper Intestinal Tract, Via Natural or Artificial Opening Endoscopic (ICD-10-PCS; CPT 43235; principal; 2022-02-05 07:00)
DX: R13.10 Dysphagia, unspecified (principal); K21.9 Gastro-esophageal reflux disease without esophagitis; E66.01 Morbid (severe) obesity due to excess calories; Z68.42 Body mass index [BMI] 45.0-49.9, adult
CPT/HCPCS: 43235; J2704; J7030

== ENCOUNTER 2022-03-11 06:04 | Outpatient (CLI) | payer OTHER, SELFPAY ==
--- NOTE | 2022-03-11 06:15 | US_ITS ---
WS: [id number] RIGHT UPPER QUADRANT ULTRASOUND HISTORY: epigastric pain COMPARISON: 08/21/2011 Liver: 20.0 cm in length. Moderately enlarged coarse echotexture throughout the liver. Increased atte nuation from hepatic steatosis. No mass or bile duct dilatation. Portal Vein: Normal hepatopetal flow with monophasic waveform. Gallbladder: Normally distended gallbladder with no stones or wall thickening. CBD: 0.4 cm Pancreas: Normal size and echogenicity. Right kidney: 11.4 cm in length. Normal size and echogenicity. No hydronephrosis or mass. Aorta and IVC: Unremarkable abdominal aorta and IVC. No ascites. US/US gall bladder [id number] IMPRESSION: 1. Normal gallbladder. 2. Moderate hepatomegaly with diffuse moderate hepatic steatosis. 3. No bile duct dilatation.
== END 2022-03-11 06:05 | disposition home or self-care (01) ==
PROVIDERS: PCP Family Medicine; Visit Provider Surgery
DX: R10.13 Epigastric pain (principal); R16.0 Hepatomegaly, not elsewhere classified
CPT/HCPCS: 76705

== ENCOUNTER 2022-06-30 08:33 | Outpatient (CLI) | payer OTHER, SELFPAY ==
--- NOTE | 2022-06-30 08:43 | MM_ITS ---
WS: [id number] BILATERAL SCREENING DIGITAL TOMOSYNTHESIS MAMMOGRAM WITH CAD HISTORY: SCREENING COMPARISON: 03/22/2020 and 01/20/2019 Bilateral CC and MLO views with tomosynthesis and synthetic mammography submitted. Computer aided det ection analyzed. Breast composition: There are scattered areas of fibroglandular density. No suspicious masses, microc alcifications or architectural distortion. Benign calcifications scattered within each breast. MM/[place] [id number] IMPRESSION: BI-RADS: 2-Benign FOLLOW UP: 1 Year Follow-up
== END 2022-06-30 08:34 | disposition home or self-care (01) ==
PROVIDERS: PCP Family Medicine; Visit Provider Family Medicine
DX: Z12.31 Encounter for screening mammogram for malignant neoplasm of breast (principal)
CPT/HCPCS: 77063; 77067

== ENCOUNTER 2022-07-03 07:56 | Outpatient (CLI) | payer OTHER, SELFPAY ==
--- NOTE | 2022-07-03 08:00 | NM_ITS ---
WS: [id number] NUCLEAR MEDICINE HIDA SCAN CLINICAL INFORMATION: abdominal pain TECHNIQUE: Following intravenous administration of 7.8 mCi of technetium 99m mebrofenin, images of th e abdomen were obtained over the course of 60 minutes. Next, gallbladder ejection fraction was determ ined by obtaining preprandial and one-hour postprandial images of the gallbladder following oral elia stion of Ensure. COMPARISON: Ultrasound 2021 FINDINGS: Normal hepatic uptake at 5 minutes. Normal hepatic excretion. Gallbladder is visualized by 15 minutes . No evidence of acute cholecystitis. Normal common bile duct and small bowel activity. Normal gallbladder ejection fraction 82% within normal limits. No evidence of chronic cholecystitis. NM/NM hepatobiliary w phar* [id number] IMPRESSION: 1. No evidence of acute or chronic cholecystitis. 2. Normal gallbladder ejection fraction 82% within normal limits.
== END 2022-07-03 07:57 | disposition home or self-care (01) ==
LOC: RAD 07:58
PROVIDERS: PCP Family Medicine; Visit Provider Surgery
DX: R10.9 Unspecified abdominal pain (principal); K82.9 Disease of gallbladder, unspecified
CPT/HCPCS: 78227; A9537

== ENCOUNTER 2023-08-13 15:13 | Outpatient (CLI) | payer OTHER, SELFPAY ==
--- NOTE | 2023-08-13 15:17 | MM_ITS ---
WS: [id number] BILATERAL 3D TOMOSYNTHESIS DIGITAL SCREENING MAMMOGRAPHY WITH CAD CLINICAL INFORMATION: SCREENING HISTORY: Screening mammogram. No current complaints. COMPARISON: 2021 TECHNIQUE: Bilateral CC and MLO views. FINDINGS: Scattered fibroglandular densities bilaterally. No suspicious focal mass, asymmetry, calcifications, or architectural distortion. No evidence of malignancy. Incidental punctate calcifications. IMPRESSION: MM/[place] [id number] BI-RADS: 2-Benign FOLLOW UP: 1 Year Follow-up Recommend return to annual screening mammography.
== END 2023-08-13 15:14 | disposition home or self-care (01) ==
LOC: RAD 15:13
PROVIDERS: PCP Family Medicine; Visit Provider Family Medicine
DX: Z12.31 Encounter for screening mammogram for malignant neoplasm of breast (principal)
CPT/HCPCS: 77063; 77067

== ENCOUNTER 2024-09-04 13:18 | Outpatient (CLI) | payer OTHER, SELFPAY ==
--- NOTE | 2024-09-04 13:30 | MM_ITS ---
WS: [id number] BILATERAL 3D TOMOSYNTHESIS DIGITAL SCREENING MAMMOGRAPHY WITH CAD CLINICAL INFORMATION: SCREENING HISTORY: Screening mammogram. No current complaints. COMPARISON: 2022 TECHNIQUE: Bilateral CC and MLO views. FINDINGS: Scattered fibroglandular densities bilaterally. No suspicious focal mass, asymmetry, calcifications, or architectural distortion. No evidence of malignancy. A few incidental punctate calcifications. MM/MM scr tomosynthesis [id number] IMPRESSION: DENSITY: There are scattered areas of fibroglandular density. BI-RADS: 2 - Benign. FOLLOW UP: 1 Year Follow-up Recommend return to annual screening mammography.
== END 2024-09-04 13:19 | disposition home or self-care (01) ==
PROVIDERS: PCP Family Medicine; Visit Provider Family Medicine
DX: Z12.31 Encounter for screening mammogram for malignant neoplasm of breast (principal); R92.323 Mammographic fibroglandular density, bilateral breasts; R92.1 Mammographic calcification found on diagnostic imaging of breast
CPT/HCPCS: 77063; 77067